=== PATIENT | female | born 1985 | race Caucasian/White ===

== ENCOUNTER 2024-07-07 18:41 | Emergency (ER) | payer OTHER, SELFPAY ==
--- NOTE | ~2024-07-07 | XR_ITS ---
EXAMINATION: XR chest 2V DATE: 07/07/2024 19:36 INDICATION: Cough and chest pain TECHNIQUE: PA and lateral views of the chest were obtained. COMPARISON: None FINDINGS: Focal airspace opacity in the right middle lobe abutting the major fissure. Small right pleural effus ion. Left lung is clear. No pneumothorax or left-sided pleural effusion. Heart size is normal. Mild t horacic spondylosis. IMPRESSION: 1. Right middle lobe pneumonia with small right pleural effusion. Recommend radiographic follow-up to document resolution. Reviewed, dictated and finalized at location A. T REMOVER IMPRESSION: 1. Right middle lobe pneumonia with small right pleural effusion. Recommend rad iographic follow-up to document resolution.
[2024-07-07 18:59] VITALS: BP 120/97; PULSE 98; RESP 20; TEMP 36.4; O2SAT 97
--- OUTSIDE RECORDS SUMMARY | 2024-07-07 22:53 | XMS_ITS | Data Portability ---
Author Organization [place] - [facility], Ellie Theodore Address [address] [place] [address] Assessment No assessment recorded. Plan of Treatment Reminders Order Date Submit Date Provider Last Modified By Organization Details Last Modified Time Details Appointments None recorded. Lab respiratory pathogens DNA and RNA panel, PCR, nasopharynx [address], [address], 4 15:21:23 HbA1c (hemoglobin A1c), blood [address], [address], 4 13:13:52 lipid panel, blood [address], [address], 4 13:13:52 glucose, QN, fingerstick , blood (glucometer ) [address], [address], 4 13:13:52 cotinine, quantitativ e, unspecified specimen [address] [place], [address], 13:13:52 Referral None recorded. Procedures None recorded. Surgeries None recorded. Imaging None recorded. Medication Orders None recorded. Patient TargetsNo targets recorded. Patient Instructions Encounter Date Encounter Id Patient Instructions Last Modified By Organization Details Last Modified Time 12/07/2023 [id number] Encouraged a healthy well balanced diet low in trans/saturated fats and high in fresh fruits, vegetables, whole grains, lean proteins and omega 3 fish oils.Participate in regular cardiovascular exercise for 30-45 minutes 3-4 times per week. Pt verbalized understanding. [email or web address] Not available 12/07/2023 11:07:51 Reason for Referral None Reported. Results Created Date Observation Date Name Description Value Unit Range Abnormal Flag Note LastModifiedBy Organization Detail LastModifiedTime 12/07/1912/07/2023 cotin ine, quant itati ve, unspe cifie d speci men Urine Pass Not Available [address], [address], 11/20/2023 12:05:18 12/07/19 24 12/07/2023 gluco se, QN, finge rstic k, blood (gluc omete r) blood glucose (fasting) 97 md/dL 65-99 Not Available [address], [address], 11/20/2023 12:05:18 12/07/19 24 12/07/2023 gluco se, QN, finge rstic k, blood (gluc omete r) blood glucose (non-fasting ) mg/dL <140 Not Available [facility], [address], 11/20/2023 12:05:18 12/07/19 24 12/07/2023 HbA1c (hemo globi n A1c), blood HbA1c 4.5 Not Available [address], [address], 11/20/2023 12:05:17 12/07/19 24 12/07/2023 lipid panel , blood total cholesterol 187 mg/dL <200 Not Available [address], [address], 11/20/2023 12:05:17 12/07/19 24 12/07/2023 lipid panel , blood LDL 110 mg/dL <100 Not Available [address], [address], 11/20/2023 12:05:17 12/07/19 24 12/07/2023 lipid panel , blood HDL 67 mg/dL >50 Not Available [address], [address], 11/20/2023 12:05:17 12/07/19 24 12/07/2023 lipid panel , blood triglyceride s 52 mg/dL <150 Not Available [address], [address], 11/20/2023 12:05:17 12/07/19 24 12/07/2023 lipid panel , blood TC/HDL ratio 2.8 <4.5 Not Available [address], [address], 11/20/2023 12:05:17 12/27/19 24 12/27/2023 respi rator y patho gens DNA and RNA panel , PCR, nasop haryn x Adenovirus Not detect ed Not Available [address], [address], 12/27/2023 12:28:59 12/27/19 24 12/27/2023 respi rator y patho gens DNA and RNA panel , PCR, nasop haryn x Coronavirus 229E Not detect ed Not Available [facility], [address], 12/27/2023 12:28:59 12/27/19 24 12/27/2023 respi rator y patho gens DNA and RNA panel , PCR, nasop haryn x Coronavirus HKU1 Not detect ed Not Available [facility], [address], 12/27/2023 12:28:59 12/27/19 24 12/27/2023 respi rator y patho gens DNA and RNA panel , PCR, nasop haryn x Coronavirus NL63 Not detect ed Not Available [address], [address], 12/27/2023 12:28:59 12/27/19 24 12/27/2023 respi rator y patho gens DNA and RNA panel , PCR, nasop haryn x Coronavirus OC43 Not detect ed Not Available [address], [address], 12/27/2023 12:28:59 12/27/19 24 12/27/2023 respi rator y patho gens DNA and RNA panel , PCR, nasop haryn x SARS-CoV-2 Detect ed Not Available [facility], [address], 12/27/2023 12:28:59 12/27/19 24 12/27/2023 respi rator y patho gens DNA and RNA panel , PCR, nasop haryn x Human Metapneumovi haylee Not detect ed Not Available [address], [address], 12/27/2023 12:28:59 12/27/19 24 12/27/2023 respi rator y patho gens DNA and RNA panel , PCR, nasop haryn x Human Rhinovirus/E nterovirus Not detect ed Not Available [address], [address], 12/27/2023 12:28:59 12/27/19 24 12/27/2023 respi rator y patho gens DNA and RNA panel , PCR, nasop haryn x Influenza A Virus Not detect ed Not Available [address], [address], 12/27/2023 12:28:59 12/27/19 24 12/27/2023 respi rator y patho gens DNA and RNA panel , PCR, nasop haryn x Influenza A Virus A/H1 Not detect ed Not Available [address], [address], 12/27/2023 12:28:59 12/27/19 24 12/27/2023 respi rator y patho gens DNA and RNA panel , PCR, nasop haryn x Influenza A Virus A/H3 Not detect ed Not Available [address], [address], 12/27/2023 12:28:59 12/27/19 24 12/27/2023 respi rator y patho gens DNA and RNA panel , PCR, nasop haryn x Influenza A Virus A/HI-2009 Not detect ed Not Available [address], [address], 12/27/2023 12:28:59 12/27/19 24 12/27/2023 respi rator y patho gens DNA and RNA panel , PCR, nasop haryn x Influenza B Virus Not detect ed Not Available [address], [address], 12/27/2023 12:28:59 12/27/19 24 12/27/2023 respi rator y patho gens DNA and RNA panel , PCR, nasop haryn x Parainfluenz a virus (1,2,3,4) Not detect ed Not Available [facility], [address], 12/27/2023 12:28:59 12/27/19 24 12/27/2023 respi rator y patho gens DNA and RNA panel , PCR, nasop haryn x Respiratory Syncytial Virus Not detect ed Not Available [address], [address], 12/27/2023 12:28:59 12/27/19 24 12/27/2023 respi rator y patho gens DNA and RNA panel , PCR, nasop haryn x Bordetella Parapetrussi s Not detect ed Not Available [address], [address], 12/27/2023 12:28:59 12/27/19 24 12/27/2023 respi rator y patho gens DNA and RNA panel , PCR, nasop haryn x Bordetella Pertussi Not detect ed Not Available [address], [address], 12/27/2023 12:28:59 12/27/19 24 12/27/2023 respi rator y patho gens DNA and RNA panel , PCR, nasop haryn x Chlamydia Pneumoniae Not detect ed Not Available [facility], [address], 12/27/2023 12:28:59 12/27/19 24 12/27/2023 respi rator y patho gens DNA and RNA panel , PCR, nasop haryn x Mycoplasma pneumoniae Not detect ed Not Available [facility] - [address] [place], [address], 12/27/2023 12:28:59 Result Notes None recorded. Problems Name Problem SNOMED Code Status Onset Date Resolution Date Notes Provider Name and Address Organization Details Recorded Time Error entry deleted 040407284 Completed 201607/04/2023 None; PROBABIL ITY: 0 Confir mation: Confirme d Annota tedDispl ay: None Cla ssificat ion: Medical Not Available [facility] 4 04:25:41 Patient encounte r status 558851828 Completed 202107/04/2023 Patient encounte r status; PROBABIL ITY: 0 SENSIT IVITY: 0.0 Conf irmation : Confirme d cancel Reason: Annotat edDispla y: Encounte r for biometri c screenin g Classi fication : Medical Lifecycl eDateTim e: 17:13:26 +00:00 Not Available [facility] 4 04:25:41 Insect bite - wound 352683925 Active 2019 Insect bite - wound; PROBABIL ITY: 0 SENSIT IVITY: 0.0 Conf irmation : Confirme d Annota tedDispl ay: Bug bite Cla ssificat ion: Medical Lifecycl eDateTim e: 21:56:00 +00:00 Not Available [facility] 4 04:25:41 Pharyngi tis 820005084 Active 2019 Pharyngi tis; PROBABIL ITY: 0 SENSIT IVITY: 0.0 Conf irmation : Confirme d Annota tedDispl ay: Pharyngi tis Clas sificati on: Medical Lifecycl eDateTim e: 21:55:00 +00:00 Not Available [facility] 4 04:25:41 History taken NOS Completed 201907/04/2023 No Chronic Problems ; PROBABIL ITY: 0 SENSIT IVITY: 0.0 Conf irmation : Confirme d Annota tedDispl ay: No Chronic Problems Classif ication: Medical Lifecycl eDateTim e: 21:55:54 +00:00 Not Available [facility] 4 04:25:41 COVID-19 672387180 Active 2023 CHRIS PURI NP [address], [place], [address] , [place] [facility] 4 15:25:56 Problem Notes None recorded. Medical Equipment None Reported. Allergies Allergen ID Allergen Name Allergen Category Reaction Reaction Severity Criticality Documentation Date Start Date Code Code System Note Provider Name and Address Organization Details Recorded Time 138592 No Allergy Informati on Available Not available Not available Not available Not available 07/04/2023 13560 UNK Comme nt: React ion Class : Aller gy; Not Available [facility] 4 02:54:09 No known drug allergies Medications Name Sig Start Date Stop Date Status Note LastModified by Organization Details LastModified Time cephalexin 500 mg capsule PLEASE SEE ATTACHED FOR DETAILED DIRECTION S 12/26 completed Not Available Not Available Not Available Vitals Date Recorded Body temperature Heart rate Oxygen saturation Oxygen saturation in Arterial blood by Pulse oximetry Body weight Body mass index (BMI) Body height Systolic blood pressure Diastolic blood pressure Provider Name and Address Organization Details Last Updated DateTime 4 98.2 [degF] 69 /min 97 % 97 % 24242.8 2 g 29.8 kg/m2 172.72 cm 105 mm[Hg] 74 mm[Hg] Stacy [place] [facility] 4 10:24:07 Social History Question Answer Notes LastModified by Organizat ion Details LastModified Time Tobacco Smoking Status Never Smoker Stacy love [place] [facility] 12/07/2023 10:17:43 In The 14 Days Before Symptom Onset, Have You Had Close Contact With A Laboratory-confirm ed COVID-19 While That Case Was Ill? No Information n ot available 12/07/2023 In The 14 Days Before Symptom Onset, Have You Had Close Contact With A Person Who Is Under Investigation For COVID-19 While That Person Was Ill? No Information not available 12/07/2023 Have You Been To An Area Known To Be High Risk For COVID-19? No [email or web address] Information not available 12/07/2023 Cigar Smoking No [email or web address] Information not available 12/07/2023 Sex: Unknown Functional Status None recorded. Mental Status None recorded. Family History Relationship Description Onset Age of this Age Resolved Age Notes LastModified by Organization Details LastModified Time Father Hypertensive disorder [email or web address] Not available 12/06 10:16:45 Maternal Grandfather Malignant tumor of lung [email or web address] Not available 12/06 10:17:00 Medical History Condition Response Coronary Artery Disease N Gout N Macular Degeneration N Atrial Fibrillation N Heart Valve Disorder N Kidney Stones N Hyperthyroidism N MRSA N COPD N Depression N Migraine Headaches N Hodgkin's Lymphoma N Retinopathy Diabetic N Positive TB Skin Test N Obstructive Sleep Apnea N Sinus Infections N Infertility N Carpal Tunnel N Lupus (SLE) N DVT (Blood Clot in legs) N Rheumatoid Arthritis N Fibromyalgia N Incontinence, stress N Anxiety N Venous Insufficiency (Swelling of Legs & Ankles) N Anemia, other N Vit D Deficiency N Peptic Ulcer Disease N Irritable bowel N Menstrual Cycle- Heavy N Blood in urine N GERD (reflux) N Compression fracture of spine (vertebral ) N Carotid Artery Disease N Tuberculosis N AIDS/HIV N Hip fracture N Anemia, iron deficient N Asthma N Blood clotting disorder N Diabetes Type II N Peripheral Vascular Disease N Myocardial Infarction with Stent (Heart Attack) N Abnormal Pap N Hepatitis N Diabetes Type I N Cirrhosis N Seizure Disorder N Stroke (CVA) N Colon Cancer N Leukemia N Erectile Dysfunction (ED) N Breast Cancer N Raynauds Disease N Myocardial Infarction w/o Stent (Heart A ttack) N Lung Cancer N Hypothyroidism N Glaucoma N Addison N Bipolar N Hypertension (High Blood Pressure) N Irregular Menses N Other Rhythm Problem N Bone loss (Osteopenia or osteoporosis) N Varicose Veins N Hearing Loss N Cervical Cancer N Hypoglycemia N Hyperlipidemia (High Cholesterol) N Chronic Kidney Disease N Vit B12 Deficiency N Incontinence, urge N Menstrual Cycle- Painful N Panic Disorder N Schizophrenia N Osteoarthritis N BPH (enlarged prostate) N UTI Chronic N Lyme Disease N Prostate Cancer N Abdominal Aortic Aneurysm N Shingles (HZ) N Non-Hodgkin's Lymphoma N Ovarian Cancer N Abnormal Mammogram N Lumbar Spine Disease N Cervical Spine Disease N Congestive Heart Failure (CHF) N Eczema N Diverticulitis N Rectal Bleeding N Dementia N Bladder Cancer N Psoriasis N Gall Stones N Thrombocytopenia (low platelets) N Allergic Rhinitis (seasonal allergies) N Gynecological HistoryNo gynecological history recorded. Obstetrics History GPAL:G 0 P 0 0 0 0 Immunizations Vaccine Type Date Status Note Provider Nam donn and Address Organization Details Recorded Time Tdap 04/01/2021 completed Stacy love, [place] - [facility] 12/07/2023 10:15:12 Past Encounters Encounter ID Performer Location Encounter Start Date Encounter Closed Date Diagnosis/Indication Diagnosis SNOMED-CT Code Diagnosis ICD10 Code Diagnosis Note [id number] CHRIS PURI NP [facility] [address] [address] 12/07/2023 10:11:23 12/07/2023 11:36:21 Adult health examination 264836482 Z00.00 Urine cotinine is negative. A1c and lipids WNL except LDL is slightly elevated. Encouraged to f/u for dental exam. Encouraged to schedule appointmen t in [facility] to establish primary care. [id number] CHRIS PURI NP [facility] [address] [address] 12/27/2023 13:40:57 12/27/2023 15:35:13 Congestion of nasal sinus 67323487 R09.81 COVID-19 [id number] U07.1 Called and informed her [employer] is positive for Coronaviru s SARS-CoV-2 and reviewed CDC recommenda tions for isolation and masking with a positive COVID 19 test. Pt should continue to monitor symptoms, treat with OTC medication if desired per package instructio n. Pt encouraged to stay home until her symptoms are resolving. Wear a well fitting mask around others and until your symptoms are resolving. Avoid travel or being around the elderly or immunocomp romised. Call 911 and go to the ER if having trouble breathing. F/u in clinic PRN. Patient is agreeable with plan and verbalized understand ing with no further questions. Health Concerns Section Related Observation LastModified by Organization Detai ls LastModified Time None Recorded Concern Status LastModified by Organization Details LastModified Time None Recorded Advance Directives Directive None Recorded Payers Encounter Date Sequence Insurance Name Policy Number Policy Mendez Covered Member ID Mendez Member ID Guarantor Name 12/07/2023 1 [employer] - ALL [employer] (PPO) [id number] Marco Gonzalez [id number] Magui Gonzalez 12/27/2023 1 [employer] - ALL [employer] (PPO) [id number] Marco Whiteraterra [id number] Magui Gonzalez Notes Date Note Type Note Provider Name and Address Organization Details Recorded Time 12/07/2023 text/html Pt presents to [facility] for Vitality screening. Does not have a PCP. Eating a healthy well balanced diet. 4 months post . . Has 3 children so free time is limited. Admits to not exercising as much as I should . But does get in her steps. Works in the garden. Outside with kids during the day. UTD on well woman/pap and dental exam. Needs to reschedule her eye exam. Does not smoke and drinks alcohol occasionally. Drinks 2 cups of coffee daily. CHRIS PURI NP [address], [place], [address], [place] [facility] 12/07/2023 11:10:40 12/27/2023 text/html Per telephonic visit after earlier drive up for [employer], pt reports body aches, chills, cough, headaches and nasal congestion since yesterday. Both children have similar symptoms. Denies any fever, sore throat, SOB or wheezing. No hx of COVID vaccines. Has not used anything for her symptoms. CHRIS PURI NP [address], [place], [address], [place] [facility] 12/27/2023 15:28:42 OBGyn Episode No OBEpisode recorded.
--- OUTSIDE RECORDS SUMMARY | 2024-07-07 22:53 | XMS_ITS | Clinical Summary ---
Author Organization [facility] Address [address] [place] [address] Phone Care Team Providers Care Assistant Infant Toddler Teacher Name Role Phone Unavailable Primary Care Provider Unavailabl e Allergies No known active allergies Medications vit-iron fumarate-fa (AMANDA ) 28 mg iron- 800 mcg Tablet Take 1 Tablet by mouth daily. Active cholecalciferol, vitamin D3, (VITAMIN D3 ORAL) Take by mouth. 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 Resolved Problems Problem Noted Date Diagnosed Date Resolved Date , delivered, current hospitalization 08/08/2023 09/18/2023 Breech presentation of fetus 06/26/2023 08/08/2023 care of multigravida, antepartum 04/11/2023 08/16/2023 MBC; , manual placental extraction 06/08/2021 04/11/2023 Breech presentation 04/14/2021 07/22/19 Poor growth affecting management of mother in third trimester 09/10/2018 04/01/2021 Encounter for supervision of normal first in first trimester 03/15/2018 07/21/2021 Encounters Date Type Department Care Team Description 06/18/2024 External Device Data [facility] ABSTRACTION Provider, Abstract 05/28/2024 External Device Data [facility] ABSTRACTION Provider, Abstract 04/23/2024 External Device Data [facility] ABSTRACTION Provider, Abstract from Last 3 Months Immunizations Immunization Administration Dates Next Due (ADACEL/BOOSTRIX)(10 YR UP) TDAP VACCINE, 0.5ML, IM 04/01/2021 Family History Medical History Relation Name Comments Healthy Father Cancer Maternal Grandfather bladder Ulcerative Colitis Maternal Grandmother Healthy Mother Heart Disease Paternal Grandfather Dementia Paternal Grandmother Breast Cancer Neg Hx Colon Cancer Neg Hx Ovarian Cancer Neg Hx Relation Name Status Comments Father Alive Maternal Grandfather Maternal Grandmother Alive Mother Alive Paternal Grandfather Paternal Grandmother Alive Social History Tobacco Use Types Packs/Day Years Used Date Smoking Tobacco: Never Smokeless Tobacco: Never Tobacco Cessation:Counseling Given: Not Answered Alcohol Use Standard Drinks/Week Comments Not Currently 0 (1 standard drink = 0.6 oz pur e alcohol) Feeling Safe Answer Date Recorded Within the last year, have y ou been afraid of your partner or ex-partner? No 09/14/2018 Within the last year, have y ou been humiliated or emotionally abused in other ways by your partner or ex-partner? No Within the last year, have y ou been kicked, hit, slapped, or otherwise physically hurt by your partner or ex-partner? No 09/14/2018 Within the last year, have y ou been raped or forced to have any kind of sexual activity by your partner or ex-partner? No 09/14/2018 Social Connections Answer Date Recorded In a typical week, how many times do you talk on the phone with family, friends, or neighbors? Twice a week 09/14/2018 How often do you get together with friends or re latives? Once a week 09/14/2018 How often do you attend alevism or mandaen serv ices? Never 09/14/2018 Do you belong to any clubs o r organizations such as alevism groups, unions, fraternal or athletic groups, or school groups? No 09/14/2018 How often do you attend meet ings of the clubs or organizations you belong to? Never 09/14/2018 Are you , , di vorced, , never , or living with a partner? 09/14/2018 Financial Resource Strain Answer Date R ecorded How hard is it for you to pa y for the very basics like food, housing, medical care, and heating? Not hard at all 09/14/2018 Food Insecurity Answer Date Recorded Within the past 12 months, y ou worried that your food would run out before you got the money to buy more. Never true 09/15/19 19 Within the past 12 months, t he food you bought just didn't last and you didn't have money to get more. Never true 09/14/2018 Transportation Needs Answer Date Record ed In the past 12 months, has l ack of transportation kept you from medical appointments or from getting medications? No 08/21 In the past 12 months, has l ack of transportation kept you from meetings, work, or from getting things needed for daily living? No 09/14/2018 Feeling Safe Answer Date Recorded Are you in a relationship wi th someone who hurts you emotionally and/or physically? No 08/08/2023 Education Answer Date Recorded What is the highest level of school you have completed or the highest degree you have received? 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 Concentration - - Weight 89.8 kg (198 lb) 09/18/2023 1:18 PM CDT Height 172.7 cm (5' 8 ) 09/18/2023 1:18 PM CDT Body Mass Index 30.11 09/18/2023 1:18 PM CDT Plan of Treatment Health Maintenance Due Date Last Done Comments Pre-Diabetes and Diabetes Screening 1985 HEPATITIS B VACCINES (1 of 3 - 19+ 3-dose series) 2006 INFLUENZA VACCINE (#1) 2023 CERVICAL CANCER SCREENING 08/03/20252022, 10/29/2018 DTAP/TDAP/TD VACCINES (2 - Td or Tdap) 04/01/2031 04/01/2021 HPV VACCINES Aged Out No longer eligi ble based on patient's age to complete this topic Procedures Procedure Name Priority Date/Time Associated Diagnosis Comments CERV/VAG CYTO AGE BASED SCREEN PAP Routine 08/03/2022 11:00 AM CDT Well woman exam with routine gynecological exam from Last 3 Months or Most Recently Relevant to Health Maintenance Results * CERV/VAG CYTO AGE BASED SCREEN PAP (08/03/2022 11:00 AM CDT) COMMENT (PAP): [facility] Comment: This order for age-based cervical cancer and STI screening follows ACOG guidelines(PB 168, 140, GFW838). See individual assays for performing site location. CLINICAL INFORMATION [facility] Comment:Routine exam LAST MENSTRUAL PERIOD [facility] Comment:07/16/2022 PREV PAP: [facility] Comment:NONE GIVEN PREV BX: [facility] [place] Comment:NONE GIVEN SOURCE [facility] [place] Comment:Endocervix ADEQUACY: [facility] Comment: Satisfactory for evaluation. Endocervical/transformation zone component present. PAP INTERP [facility] Comment:Negative for intraep ithelial lesion or malignancy. COMMENT (PAP TEST) [facility] Comment: This Pap test has been evaluated with computer assisted technology. INSTRUMENTATION CHEMIST: Candace Pavon Comment: LM, CT(ASCP) CT screening location: [place] [address] [place] [id number] EXPLANATORY NOTE Que [facility] Pavon Comment: EXPLANATORY NOTE: The Pap is a screening test for cervical cancer. It is not a diagnostic test and is subject to false negative and false positive results. It is most reliable when a satisfactory sample, regularly obtained, is submitted with relevant clinical findings and history, and when the Pap result is evaluated along with historic and current clinical information. HPV E6/E7 Not Detected Not Detected [facility]il[facility] Pavon Comment: Methodology: Mastic Man-Mediated Amplification This assay detects E6/E7 viral messenger RNA (mRNA) from 14 high-risk HPV types (16,18,31,33,35,39,45,51,52,56,58,59,66,68). Cervical sources are required for HPV testing. If a vaginal source from a patient who has had a total hysterectomy with removal of cervix was submitted, please contact the testing laboratory for alternative testing options. For additional information, please refer to http://education.Cobra [employer]let/faq/PMQ304k8 (This link if provided for information/ educational purposes only.) Test Performed at: [facility] [address] [phone] Maximiliano FONTENOT Genital SWAB OF ENDOCERVIX / Unknown 08/03/2022 11:00 AM CDT 08/03/2022 9:00 PM CDT Vijaya Valentin CNM PATHOLOGY/CYTOLOGY ORDERABLES F inal Result [facility] [phone] [facility] [address] [place] [address] from Last 3 Months or Most Recently Relevant to Health Maintenance Insurance RX [employer] RX Member Subscriber Plan / Payer (Ef fective for All Dates) Name:Magui Gonzalez Relation to Subscriber:Self Name:Magui Gonzalez Payer ID:Not on file Type:RX Commercial Address: [address] [facility] [address] Advance Directives For more information, please contact: [phone] * Full Code (Latest Code Status on File) Date Activated Date Inactivated Comments 08/08/2023 10:08 AM 08/09/2023 5:30 PM * Full Code Date Activated Date Inactivated Comments 08/08/2023 4:59 AM 08/08/2023 10:08 AM * Full Code Date Activated Date Inactivated Comments 06/09/2021 12:18 AM 06/10/2021 12:37 PM * Full Code Date Activated Date Inactivated Comments 09/14/2018 1:40 PM 09/17/2018 5:19 PM * Full Code Date Activated Date Inactivated Comments 09/14/2018 9:30 AM 09/14/2018 10:51 AM
--- NOTE | 2024-07-07 23:02 | ED.GENADULT ---
HPI - General Adult General Chief complaint: Unspecified Stated complaint: rib pain Time Seen by Provider: 07/07/24 22:33 History of Present Illness HPI narrative: This is a 39-year-old female presenting to the ED with chief complaint of rib pain. Patient has had influenza going through family over the last 2 weeks. She developed symptoms 10 days ago and is getting progressively worse. Now she has had coughing fits that led to a popping sensation in her right rib and she has pain on coughing. She has not had a fever for 5 days. No nausea vomiting or diarrhea. Related Data Allergies Allergy/AdvReac Type Severity Reaction Status Date / Time No Known Allergies Allergy Verified 07/07/24 23:21 Exam Narrative: APPEARANCE: Patient appears uncomfortable Head: atraumatic. EYES: EOMI, NOSE: Atraumatic NECK: Trachea midline RESPIRATORY: Tachypneic, clear to auscultation, coughs on deep breaths CARDIOVASCULAR: Mildly tachycardic ABDOMINAL: Non-distended MUSCULOSKELETAl: No obvious deformities NEURO: Alert. Moving 4/4 extremities SKIN:: Warm, dry. Normal color PSYCHIATRIC: Normal affect Course Vital Signs Vital signs: Vital Signs Temperature 97.6 F 07/07/24 18:59 Pulse Rate 98 07/07/24 18:59 Respiratory Rate 20 07/07/24 18:59 Blood Pressure 120/97 H 07/07/24 18:59 Pulse Oximetry 97 07/07/24 18:59 Oxygen Delivery Room Air 07/07/24 18:59 Temperature 97.6 F 07/07/24 18:59 Pulse Rate 98 07/07/24 18:59 Respiratory Rate 20 07/07/24 18:59 Blood Pressure 120/97 H 07/07/24 18:59 Pulse Oximetry 97 07/07/24 18:59 Oxygen Delivery Room Air 07/07/24 18:59 Medical Decision Making [facility] Narrative Medical decision making narrative: -Course: 39-year-old female presenting 10 days after ulices influenza with persistent cough feeling unwell. Chest x-ray shows right middle lobe pneumonia, no pneumothorax, small pleural effusion. No displaced rib fractures this was lead tender exam. Suspect cracked rib. Given patient's extended course she will be started on antibiotics to cover secondary pneumonia. Given fluids and pain control for her rib pain. Educated on incentive spirometry. On re-evaluation patient is resting comfortably. She will be discharged home with antibiotics and pain medication. -DDX includes but is not limited to: Pneumonia, rib fracture, viral illness Vital Signs Vital Signs: Vital Signs Temperature 97.6 F 07/07/24 18:59 Pulse Rate 98 07/07/24 18:59 Respiratory Rate 20 07/07/24 18:59 Blood Pressure 120/97 H 07/07/24 18:59 Pulse Oximetry 97 07/07/24 18:59 Oxygen Delivery Room Air 07/07/24 18:59 Temperature 97.6 F 07/07/24 18:59 Pulse Rate 98 07/07/24 18:59 Respiratory Rate 20 07/07/24 18:59 Blood Pressure 120/97 H 07/07/24 18:59 Pulse Oximetry 97 07/07/24 18:59 Oxygen Delivery Room Air 07/07/24 18:59 Discharge Plan Discharge Clinical Impression: Rib pain on right side, Pneumonia Patient Disposition: Home, Self-Care Condition: Stable Instructions: Antibiotic Form, Rib Fracture (ED), Pneumonia (ED) Additional Instructions: You were seen in the emergency department for rib pain and cough. Please take the antibiotics to cover pneumonia. Use Motrin Tylenol and lidocaine patches for your rib pain. Use the incentive spirometer 10 times an hour while awake. Please follow-up with your primary care physician for further management. If you develop worsening chest pain or shortness of breath only to return to ED for re-evaluation. Patient Language: Cypriot Prescriptions: New acetaminophen 500 mg tablet 1,000 mg PO TID PRN (Reason: oumar) 7 Days Qty: 42 0RF ibuprofen 800 mg tablet 800 mg PO TID PRN (Reason: pain) 7 Days Qty: 21 0RF lidocaine 5 % adhesive patch,medicated 1 patch topical DAILY Qty: 15 0RF Rx Instructions: leave on most painful area for up to 12 hrs amoxicillin-pot clavulanate 875-125 mg tablet 1 tablet PO Q12H Qty: 20 0RF azithromycin 250 mg tablet See Rx Instructions .ROUTE .COMPLEX Qty: 6 0RF Rx Instructions: For 250 mg dose pack: take 500 mg today (day 1), then 250 mg for 4 days (days 2-5) Follow-up/Referrals: PHYSICIAN,FANCY STITCHER [Primary Care Provider] -
[2024-07-07] MEDS: SODIUM CHLORIDE 0.9% IV 1,000 ML 999 ML IV CONT (23:27)
[2024-07-07] MEDS: KETOROLAC 15 MG/ML VIAL (*BKC) IV PUSH (23:27)
[2024-07-07] MEDS: AMOXICILLIN/CLAVULANATE K 875-125 MG TAB 1 TABLET PO (23:28)
[2024-07-07] MEDS: ACETAMINOPHEN 500 MG TABLET 1000 MG PO (23:28)
[2024-07-07] MEDS: AZITHROMYCIN 250 MG TABLET 500 MG PO (23:28)
[2024-07-07 23:38] VITALS: BP 135/86; RESP 22; O2SAT 98
[2024-07-07 23:38] LABS: Basophils Percent Auto 0.2 % (0.2-1.2); Eosinophils Absolute Auto 0.2 K/mm3 (0-0.3); Eosinophils Percent Auto 1.4 % (0-4.4); Hematocrit 41.6 % (37.0-47.0); Hemoglobin 14.2 g/dL (12.0-15.0); Immature Granulocyte Absolute 0.05 K/mm3 (0.00-0.031); Immature Granulocyte Percent A 0.4 % (0-0.5); Lymphocytes Absolute Auto 1.95 K/mm3 (0.9-3.2); Lymphocytes Percent Auto 14.6 % (18.3-44.2); Mean Corpuscular HGB Conc 34.1 g/dl (32-36); Mean Corpuscular Hemoglobin 30.9 pg (26-34); Mean Corpuscular Volume 90.4 fl (80-100); Mean Platelet Volume 9.8 fl (7.4-10.4); Monocytes Absolute Auto 1.1 K/mm3 (0.1-0.6); Monocytes Percent Auto 7.8 % (2.6-8.5); Neutrophils Absolute Auto 10.1 K/mm3 (1.3-6.7); Neutrophils Percent Auto 75.6 % (45.5-73.1); Platelet Count Result 352 k/mm3 (150-375); Red Cell Distribution Width 11.9 % (11.5-14.5); White Blood Count 13.4 K/mm3 (4.5-10.0)
[2024-07-07 23:49] LABS: Alanine Aminotransferase 14 U/L (6-35); Albumin Level 4.3 g/dL (3.5-5.1); Alkaline Phosphatase 69 U/L (38-126); Anion Gap 13 mmol/L (4-12); Aspartate Amino Transferase 19 U/L (14-36); Bilirubin,Total 0.7 mg/dL (0.2-1.3); Blood Urea Nitrogen 6 mg/dL (7-17); Calcium 9.2 mg/dL (8.4-10.2); Carbon Dioxide 22 mmol/L (22-30); Chloride 105 mmol/L (98-107); Estimated CRCL calculation 120 ml/min; Estimated Glomerular Filt Rate > 60; Glucose 100 mg/dL (65-110); Potassium 3.8 mmol/L (3.4-5.0); Sodium 140 mmol/L (137-145)
[2024-07-07] MEDS: LIDOCAINE 5% PATCH 1 PATCH TRANSDERM (23:50)
[2024-07-08 00:14] LABS: Influenza A QL RT-PCR Negative (Negative); Influenza B QL RT-PCR Negative (Negative); RSV RNA, RT-PCR Negative (Negative); SARS-CoV-2 RNA PCR Negative (Negative)
[2024-07-08 00:45] VITALS: BP 131/84; RESP 20; O2SAT 97
== END 2024-07-08 01:25 | disposition home or self-care (01) ==
PROVIDERS: Emergency Provider Emergency Medicine
DX: J18.9 Pneumonia, unspecified organism (principal); R07.89 Other chest pain; Z20.822 Contact with and (suspected) exposure to COVID-19
CPT/HCPCS: 36415; 71046; 80053; 85025; 87637; 96361; 96374; 99284; A9270; J1885; J7030

== ENCOUNTER 2025-01-30 18:06 | Emergency (ER) | payer OTHER, SELFPAY ==
--- NOTE | ~2025-01-30 | XR_ITS ---
XR foot LT min 3V 01/30/2025 18:20 INDICATION: Foot pain after recent trauma PROCEDURE: 4 views left foot COMPARISON: No prior studies for comparison. FINDINGS: Fracture, dislocation or subluxation is not identified. The soft tissues appear within normal limits. No foreign bodies are identified. IMPRESSION: 1: NO ACUTE BONE OR JOINT ABNORMALITY IDENTIFIED. Reviewed, dictated and finalized at location O.
--- NOTE | 2025-01-30 18:07 | ED.LOWEXIN ---
HPI - Extremity Injury (Lower) General Chief Complaint: Extremity Injury, Lower Stated Complaint: INJURED L FOOT Time Seen by Provider: 01/30/25 18:07 Source: patient Mode of arrival: ambulatory Limitations: no limitations History of Present Illness HPI Narrative: Nestor is a 40-year-old female patient presenting to the clinic today with complaints of left foot injury x2 weeks. She reports she dropped a full cup of water on the top of her left foot 2 weeks ago. Reports the pain is getting worse. Rates pain 4/10. Has not taken any medications for her symptoms. Related Data Allergies Allergy/AdvReac Type Severity Reaction Status Date / Time No Known Allergies Allergy Verified 01/30/25 18:14 Review of Systems Review of Systems: Pertinent positives per HPI. Patient denies any fever, chills, rash, headache, visual changes, dizziness, cough, runny nose, sore throat, shortness of breath, chest pain, palpitations, nausea, vomiting, diarrhea, constipation, abdominal pain, or any urinary issues. PMFSH Comments At the time of my signature, I reviewed and agree with the nursing past medical, surgical, social, and family history. There is no relevant family history pertinent to the patient complaint. Exam Narrative: General: Well-developed, well nourished, in no apparent distress Head: Normocephalic, atraumatic. Cardio: Regular rate and rhythm, s1 and s2 normal, no murmur appreciated. Resp: Clear to auscultation bilaterally, no rhonchi, rales, wheezing or rubs. Musculoskeletal: No deformity, old bruising noted, knotted area to the left dorsal foot, tender to palpation over the dorsal foot, mild erythema without redness, grossly normal range of motion, muscle strength strong and equal, peripheral pulse strong, no edema, no cyanosis, normal gait and station Course Course Emergency Course: Portions of this record may have been created with voice recognition software. Level of Care: Express Care Visit Vital Signs Vital signs: Vital Signs Temperature 36.2 C L 01/30/25 18:20 Pulse Rate 72 01/30/25 18:20 Respiratory Rate 16 01/30/25 18:20 Blood Pressure 125/74 01/30/25 18:20 Pulse Oximetry 99 01/30/25 18:20 Temperature 36.2 C L 01/30/25 18:20 Pulse Rate 72 01/30/25 18:20 Respiratory Rate 16 01/30/25 18:20 Blood Pressure 125/74 01/30/25 18:20 Pulse Oximetry 99 01/30/25 18:20 Vital signs reviewed MDM - Extremity Injury (Lower) MDM Narrative Medical decision making narrative: At the time of visit patient is resting comfortably on the exam table. Patient appears to be nontoxic. Complaints of left foot injury x2 weeks. She reports she dropped a full cup of water on the top of her left foot 2 weeks ago. Reports the pain is getting worse. Rates pain 4/10. Has not taken any medications for her symptoms. X-ray of the left foot ordered. On exam patient has old bruising noted, knotted area to the left dorsal foot, tender to palpation over the dorsal foot, mild erythema without redness, grossly normal range of motion, x-ray of the left foot was ordered. Diagnostics: X-ray of the left foot was performed and was negative for any sign of fracture or malalignment of the left foot Plan: I suspect patient has a left foot hematoma/contusion. Supportive measures were discussed with the patient and they voiced understanding discharge instructions and agrees to treatment plan. Return precautions reviewed Differential Diagnosis Differential diagnosis: Likely fracture of toe and other (Foot fracture, foot contusion) Imaging Data Radiologist's impression: [address] [place] [address] XRay Report Signed Patient: Magui Gonzalez : 1985 MR#: [id number] Age: 40 Acct:[id number] Loc: [facility] ADM Date: 01/30/25Attending Dr: Ordering Physician: Peter Roberts APRN Date of Service: 01/30/25 Procedure(s): XR foot LT min 3V Accession Number(s): [id number] cc: Peter Roberts APRN; STRANDING MACHINE OPERATOR PHYSICIAN~ XR foot LT min 3V 01/30/2025 18:20 INDICATION: Foot pain after recent trauma PROCEDURE: 4 views left foot COMPARISON: No prior studies for comparison. FINDINGS: Fracture, dislocation or subluxation is not identified. The soft tissues appear within normal limits. No foreign bodies are identified. IMPRESSION: 1: NO ACUTE BONE OR JOINT ABNORMALITY IDENTIFIED. Reviewed, dictated and finalized at location O. Please be advised this is a medical document. It is intended for [id number] communication. It is written in medical language and may contain unfamiliar abbreviations or verbiage. Medical documents are intended to carry relevant information, facts as evident, and the clinical opinion of the practitioner at the time of the encounter. This report may have been done utilizing a voice recognition system. Attempts have been made to correct errors. However, there may be uncorrected grammatical, spelling, and recognition errors present. The file time of this note does not necessarily represent the time of service. Dictated By: Jozef Rasheed MD 01/30/25 1828 Signed By: <Electronically signed by Jozef Rasheed MD in OV> 01/30/251828 Discharge Plan Discharge Clinical Impression: Hematoma of left foot Contusion of foot Qualifiers: Encounter type: initial encounter Laterality: left Qualified Code(s): S90.32XA - Contusion of left foot, initial encounter Patient Disposition: Home Condition: Stable Instructions: Antibiotic Form, Foot Contusion (ED), Hematoma (ED) Additional Instructions: X-rays negative for any sign of fracture or malalignment of the left foot. Rest, ice, elevate, and wear esme wrap as directed Tylenol/motrin for pain as discussed. Gradually bear weight No running or sports until healed. Follow up with your PCP if symptoms persist more than 1 week. Patient Language: Luxembourgish Follow-up/Referrals: UNKNOWN,DOCTOR [Non-Staff] Time of Disposition: 18:35 Quality NIHSS Nursing Documentation ED NIHSS nursing documentation: reviewed/agree
[2025-01-30 18:20] VITALS: BP 125/74; PULSE 72; RESP 16; TEMP 36.2; O2SAT 99
== END 2025-01-30 18:45 | disposition home or self-care (01) ==
PROVIDERS: Emergency Provider Nurse Practitioner Family
DX: S90.32XA Contusion of left foot, initial encounter (principal); W20.8XXA Other cause of strike by thrown, projected or falling object, initial encounter
CPT/HCPCS: 73630; 99213; G0463